=== PATIENT | male | born 1995 | race Two or more races ===

== ENCOUNTER 2023-03-04 01:05 | Emergency (ER) | payer OTHER ==
[~2023-03-04] VITALS: Ht 188 cm; Wt 86.2 kg
[2023-03-04 01:08] VITALS: TEMP 98.5
[2023-03-04] MEDS ORDERED: KETOROLAC TROMETHAMINE INJ 30 MG/ML VIAL ONE (01:13)
[2023-03-04] MEDS ORDERED: TDAP [DIPH/PERTUSSIS/TET] 0.5 ML VIAL IM ONE ×2 (01:13→01:30)
[2023-03-04] MEDS ORDERED: KETOROLAC TROMETHAMINE INJ 30 MG/ML VIAL IV ONE (01:30)
[2023-03-04] MEDS ORDERED: LIDOCAINE 1%-EPI 1:100,000 20 ML VIAL ONE (01:55)
[2023-03-04] MEDS ORDERED: LIDOCAINE HCL/PF 1% 30 ML VIAL IM ONE (02:00)
[2023-03-04 02:05] LABS: BASOPHILS % (AUTO) 0.3 % (0.0-2.0); EOSINOPHILS % (AUTO) 0.4 % (0.0-6.0); HEMATOCRIT 40 % (39-51); HEMOGLOBIN 13.4 g/dL (13.5-17.5); LYMPHOCYTES # (AUTO) 5.1 K/uL (0.8-4.8); LYMPHOCYTES % (AUTO) 44.6 % (20.0-44.0); MEAN CORPUSCULAR HEMOGLOBIN 30 PG (26.0-33.0); MEAN CORPUSCULAR HGB CONC 34 g/dl (31.0-36.0); MEAN CORPUSCULAR VOLUME 88 fL (80-96); MONOCYTES # (AUTO) 0.7 K/uL (0.1-1.30); MONOCYTES % (AUTO) 6.4 % (2.0-12.0); NEUTROPHILS # (AUTO) 5.6 K/uL (1.8-8.9); NEUTROPHILS % (AUTO) 48.3 % (43.0-81.0); PLATELET COUNT (AUTO) 229 K/uL (150-450); RED CELL DISTRIBUTION WIDTH 12.4 % (11.5-15.0); WHITE BLOOD COUNT (AUTO) 11.5 K/uL (4.3-11.0)
[2023-03-04 02:15] LABS: INR 1.03 (0.91-1.10); PROTHROMBIN TIME 10.9 SECS (9.2-11.1)
[2023-03-04] MEDS ORDERED: IOHEXOL-300 100 ML VIAL IV ONE (02:19)
[2023-03-04] MEDS ORDERED: CT SWABBABLE VALVE TRANS SET 1 EA INFUS.SET MC ONE (02:19)
[2023-03-04] MEDS ORDERED: IV NS 0.9% 250 ML IV ONE (02:19)
[2023-03-04 02:22] LABS: CARBON DIOXIDE 25 mmol/L (21-32); CHLORIDE 104 mmol/L (98-107); CREATININE 1.3 mg/dL (0.6-1.3); GLUCOSE 109 mg/dL (74-106); POTASSIUM 3.5 mmol/L (3.5-5.1); SODIUM SERUM 140 mmol/L (136-145); UREA NITROGEN, BLOOD 20 mg/dL (7-18)
[2023-03-04 02:29] LABS: ALANINE AMINOTRANSFERASE 31 U/L (12-78); ALBUMIN 4.2 g/dL (3.4-5.0); ALCOHOL, BLOOD < 3 mg/dL (0-10); ALKALINE PHOSPHATASE 69 U/L (46-116); ASPARTATE AMINOTRANSFERASE 39 U/L (15-37); BILIRUBIN,TOTAL 0.3 mg/dL (0.2-1.0); TOTAL PROTEIN, SERUM 7.9 g/dL (6.4-8.2)
[2023-03-04] MEDS ORDERED: CEPH500C2 PO (04:42)
[2023-03-04 05:25] VITALS: BP 127/72; O2SAT 98
== END 2023-03-04 05:26 ==
LOC: ER 01:07
DX: S41.011A Laceration without foreign body of right shoulder, initial encounter (principal); S21.211A Laceration without foreign body of right back wall of thorax without penetration into thoracic cavity, initial encounter; Z79.899 Other long term (current) drug therapy; W45.8XXA Other foreign body or object entering through skin, initial encounter; Y93.89 Activity, other specified; Y92.89 Other specified places as the place of occurrence of the external cause; Y99.8 Other external cause status
CPT/HCPCS: 12002; 36415; 71045; 71260; 73060; 74177; 80053; 80320; 85025; 85610; 90471; 90715; 96374; 99285; J1885; J3490; J7050; Q9967; G0480

== ENCOUNTER 2023-03-07 13:04 | Emergency (ER) | payer OTHER ==
[~2023-03-07] VITALS: Ht 188 cm; Wt 86.2 kg
[~2023-03-07 13:04] MED LIST: CEPH500C2 PO
[2023-03-07 13:15] VITALS: BP 118/77; TEMP 98.2
[2023-03-07] MEDS ORDERED: KETO10TA2 PO (13:17)
[2023-03-07] MEDS ORDERED: HYDR-4209 PO (13:17)
[2023-03-07 13:22] VITALS: O2SAT 98
[2023-03-07] MEDS ORDERED: HYDR-3976 PO (14:54)
== END 2023-03-07 13:23 | disposition home or self-care (01) ==
LOC: ER 13:04
DX: S41.011D Laceration without foreign body of right shoulder, subsequent encounter (principal); S21.211D Laceration without foreign body of right back wall of thorax without penetration into thoracic cavity, subsequent encounter; X58.XXXD Exposure to other specified factors, subsequent encounter

== ENCOUNTER 2023-03-11 21:20 | Emergency (ER) | payer OTHER ==
[~2023-03-11] VITALS: Ht 182.9 cm; Wt 77.1 kg
[~2023-03-11 21:20] MED LIST changes: +HYDR-3976 PO; +HYDR-4209 PO; +KETO10TA2 PO
[2023-03-11] MEDS ORDERED: ONDA4TAB11 PO (22:52)
[2023-03-11] MEDS ORDERED: KETO10TA2 PO (22:52)
[2023-03-12 04:41] VITALS: BP 125/84; TEMP 98.2; O2SAT 99
== END 2023-03-12 00:10 | disposition home or self-care (01) ==
LOC: ER 21:24
DX: S41.011D Laceration without foreign body of right shoulder, subsequent encounter (principal); Z48.02 Encounter for removal of sutures; X58.XXXD Exposure to other specified factors, subsequent encounter

== ENCOUNTER 2023-10-21 13:09 | Emergency (ER) | payer SELFPAY ==
[~2023-10-21] VITALS: Ht 188 cm; Wt 89.8 kg
[~2023-10-21 13:09] MED LIST changes: -HYDR-4209 PO; +ONDA4TAB11 PO
[2023-10-21 13:22] VITALS: BP 140/80; TEMP 98; O2SAT 97
[2023-10-21] MEDS ORDERED: dexaMETHasone SOD PHOSPHATE 1 ML ONE (13:33)
[2023-10-21] MEDS: dexaMETHasone SOD PHOSPHATE 10 MG/ML VIAL MC ONE (13:34)
[2023-10-21] MEDS ORDERED: IBUP-1955 PO (14:53)
[2023-10-21] MEDS ORDERED: PENI500T PO (14:53)
[2023-10-21] MEDS ORDERED: ACET-2605 PO (14:53)
== END 2023-10-21 15:03 | disposition home or self-care (01) ==
LOC: ER 13:12
DX: J02.0 Streptococcal pharyngitis (principal); Z20.822 Contact with and (suspected) exposure to COVID-19
CPT/HCPCS: 99283; 87426; 87880; J1100; 86403-TC

== ENCOUNTER 2023-11-22 14:50 | Emergency (ER) | payer OTHER ==
[~2023-11-22] VITALS: Ht 188 cm; Wt 88.5 kg
[~2023-11-22 14:50] MED LIST changes: +ACET-2605 PO; +IBUP-1955 PO; +PENI500T PO
[2023-11-22 15:01] VITALS: BP 141/87; TEMP 98
[2023-11-22] MEDS: FLUORESCEIN SODIUM OPHTH 1 EA STRIP OP ONE (15:18)
[2023-11-22] MEDS ORDERED: TETRAcaine 5 ML BOTTLE ONE (15:18)
[2023-11-22] MEDS ORDERED: POLY10DR OP (15:57)
[2023-11-22 16:09] VITALS: O2SAT 98
== END 2023-11-22 16:10 | disposition home or self-care (01) ==
LOC: ER 14:50
DX: H57.12 Ocular pain, left eye (principal); Z79.899 Other long term (current) drug therapy; Z60.2 Problems related to living alone

== ENCOUNTER 2024-01-08 09:29 | Emergency (ER) | payer OTHER ==
[~2024-01-08] VITALS: Ht 188 cm; Wt 89.8 kg
[~2024-01-08 09:29] MED LIST changes: +POLY10DR OP
[2024-01-08 09:49] VITALS: BP 136/85; TEMP 97.7
[2024-01-08] MEDS ORDERED: BENZ-13 PO (10:10)
[2024-01-08] MEDS ORDERED: GUAI-946 PO (10:10)
[2024-01-08] MEDS ORDERED: BENZONATATE 100 MG CAPSULE PO ONE (10:16)
[2024-01-08] MEDS: BENZONATATE 100 MG CAPSULE PO PRN (10:18)
[2024-01-08 10:22] VITALS: O2SAT 98
== END 2024-01-08 10:23 | disposition home or self-care (01) ==
LOC: ER 09:43
DX: J02.9 Acute pharyngitis, unspecified (principal); B97.89 Other viral agents as the cause of diseases classified elsewhere; F17.200 Nicotine dependence, unspecified, uncomplicated; Z60.2 Problems related to living alone

== ENCOUNTER 2024-01-12 00:42 | Emergency (ER) | payer OTHER ==
[~2024-01-12] VITALS: Ht 188 cm; Wt 86.2 kg
[~2024-01-12 00:42] MED LIST changes: +BENZ-13 PO; +GUAI-946 PO
[2024-01-12] MEDS ORDERED: CODEINE/PROMETHAZINE HCL 5 ML UDC ONE (01:41)
[2024-01-12] MEDS ORDERED: AZITHROMYCIN 250 MG TABLET ONE (01:42)
[2024-01-12] MEDS: CODEINE/PROMETHAZINE HCL 5 ML UDC PO ONE (01:47)
[2024-01-12] MEDS: AZITHROMYCIN 250 MG TABLET PO ONE (01:47)
[2024-01-12] MEDS ORDERED: AZIT250T PO (02:17)
[2024-01-12 02:22] VITALS: BP 170/89; TEMP 98; O2SAT 100
== END 2024-01-12 02:22 | disposition home or self-care (01) ==
LOC: ER 00:43
DX: J40 Bronchitis, not specified as acute or chronic (principal); F17.200 Nicotine dependence, unspecified, uncomplicated; Z60.2 Problems related to living alone
CPT/HCPCS: 71045-TC

== ENCOUNTER 2024-03-17 21:07 | Emergency (ER) | payer OTHER ==
[~2024-03-17] VITALS: Ht 185.4 cm; Wt 89.8 kg
[~2024-03-17 21:07] MED LIST changes: +AZIT250T PO
[2024-03-17] MEDS: ACETAMINOPHEN ES 500 MG TABLET PO ONE (22:00)
[2024-03-17] MEDS: IV NS 0.9% 1,000 ML BAG IV ONE (22:00)
[2024-03-17] MEDS ORDERED: ACETAMINOPHEN ES 500 MG TABLET ONE (22:00)
[2024-03-17 22:20] LABS: BASOPHILS % (AUTO) 0.3 % (0.0-2.0); EOSINOPHILS % (AUTO) 0.1 % (0.0-6.0); HEMATOCRIT 42 % (39-51); HEMOGLOBIN 14.2 g/dL (13.5-17.5); LYMPHOCYTES # (AUTO) 0.7 K/uL (0.8-4.8); LYMPHOCYTES % (AUTO) 14.1 % (20.0-44.0); MEAN CORPUSCULAR HEMOGLOBIN 30 PG (26.0-33.0); MEAN CORPUSCULAR HGB CONC 34 g/dl (31.0-36.0); MEAN CORPUSCULAR VOLUME 87 fL (80-96); MONOCYTES # (AUTO) 0.7 K/uL (0.1-1.30); MONOCYTES % (AUTO) 13.4 % (2.0-12.0); NEUTROPHILS # (AUTO) 3.7 K/uL (1.8-8.9); NEUTROPHILS % (AUTO) 72.1 % (43.0-81.0); PLATELET COUNT (AUTO) 170 K/uL (150-450); RED BLOOD CELL COUNT(AUTO) 4.76 MIL/uL (4.5-6.0); RED CELL DISTRIBUTION WIDTH 13.3 % (11.5-15.0); WHITE BLOOD COUNT (AUTO) 5.2 K/uL (4.3-11.0)
[2024-03-17 22:33] LABS: CALCIUM, SERUM 8.7 mg/dL (8.5-10.1); POTASSIUM 3.5 mmol/L (3.5-5.1)
[2024-03-17] MEDS ORDERED: OSEL75CA PO (22:56)
[2024-03-17 23:13] LABS: APPEARANCE,URINE CLEAR (CLEAR); BILIRUBIN,URINE NEGATIVE (NEGATIVE); BLOOD, URINE NEGATIVE Ery/uL (NEGATIVE); COLOR,URINE YELLOW (YELLOW); KETONES,URINE TRACE mg/dL (NEGATIVE); LEUKOCYTE ESTERASE ,URINE NEGATIVE (NEGATIVE); NITRITE, URINE NEGATIVE (NEGATIVE); PROTEIN,URINE 1+ mg/dl (NEGATIVE); UGLUCOSE NEGATIVE (NEGATIVE)
[2024-03-17] MEDS ORDERED: OSELTAMIVIR PHOSPHATE 75 MG CAPSULE ONE (23:19)
[2024-03-17] MEDS: OSELTAMIVIR PHOSPHATE 75 MG CAPSULE PO ONE (23:24)
[2024-03-17 23:25] LABS: ADD URINE CULTURE NO; BACTERIA,URINE Rare /HPF (None Seen); MUCUS,URINE Many /LPF (None Seen); RBC,URINE 0-2 /HPF (0-2); SQUAMOUS EPITHELIAL CELL,UR Rare /HPF (None Seen); WBC,URINE 0-2 /HPF (0-3)
[2024-03-17 23:36] VITALS: BP 143/87; TEMP 216; O2SAT 95
== END 2024-03-17 23:38 | disposition home or self-care (01) ==
LOC: ER 21:13
DX: J10.1 Influenza due to other identified influenza virus with other respiratory manifestations (principal); F17.200 Nicotine dependence, unspecified, uncomplicated; R50.9 Fever, unspecified; R05.9 Cough, unspecified; R09.81 Nasal congestion; Z20.822 Contact with and (suspected) exposure to COVID-19; Z60.2 Problems related to living alone
CPT/HCPCS: 99284; 96360; 71045; 87426; 87804 ×2; 85025; 80048; 81001; 36415; J7030

== ENCOUNTER 2024-03-19 23:52 | Emergency (ER) | payer OTHER ==
[~2024-03-19] VITALS: Ht 188 cm; Wt 87.1 kg
[~2024-03-19 23:52] MED LIST changes: +OSEL75CA PO
[2024-03-20] MEDS ORDERED: AMOX500C2 PO (03:42)
[2024-03-20 05:56] VITALS: BP 125/80; TEMP 98; O2SAT 100
== END 2024-03-20 05:57 ==
LOC: ER 03-20 00:02
DX: J40 Bronchitis, not specified as acute or chronic (principal); F17.200 Nicotine dependence, unspecified, uncomplicated; R09.89 Other specified symptoms and signs involving the circulatory and respiratory systems; Z65.3 Problems related to other legal circumstances; Z60.2 Problems related to living alone; Z20.822 Contact with and (suspected) exposure to COVID-19

== ENCOUNTER 2024-05-01 19:31 | Emergency (ER) | payer SELFPAY ==
[~2024-05-01 19:31] MED LIST changes: +AMOX500C2 PO
== END 2024-05-01 22:56 | disposition left against medical advice (07) ==
LOC: ER 19:33
DX: J02.9 Acute pharyngitis, unspecified (principal); Z53.21 Procedure and treatment not carried out due to patient leaving prior to being seen by health care provider

== ENCOUNTER 2024-05-02 21:53 | Emergency (ER) | payer SELFPAY ==
[~2024-05-02] VITALS: Ht 188 cm; Wt 89.8 kg
[2024-05-03 00:57] VITALS: BP 152/90; TEMP 99.8
[2024-05-03] MEDS ORDERED: PRED50TA PO (01:09)
[2024-05-03] MEDS ORDERED: CLIN300C12 PO (01:09)
[2024-05-03] MEDS ORDERED: HYDR-3976 PO (01:09)
[2024-05-03] MEDS ORDERED: predniSONE 20 MG TABLET ONE (01:12)
[2024-05-03] MEDS ORDERED: PENICILLIN G BENZATHINE 2.4 MMU/4 ML ML IM ONE ×2 (01:12→01:30)
[2024-05-03 01:29] VITALS: O2SAT 96
[2024-05-03] MEDS ORDERED: predniSONE 50 MG TABLET PO ONE (01:30)
== END 2024-05-03 01:29 | disposition home or self-care (01) ==
LOC: ER 21:56
DX: J03.90 Acute tonsillitis, unspecified (principal); F17.200 Nicotine dependence, unspecified, uncomplicated; Z60.2 Problems related to living alone
CPT/HCPCS: 99283; J0558; J7512

== ENCOUNTER 2024-08-10 14:03 | Emergency (ER) | payer OTHER ==
[~2024-08-10] VITALS: Ht 185.4 cm; Wt 86.2 kg
[~2024-08-10 14:03] MED LIST changes: +CLIN300C12 PO; +PRED50TA PO
[2024-08-10 14:09] VITALS: BP 140/73; TEMP 97.5
[2024-08-10] MEDS ORDERED: BENZ-13 PO (14:25)
[2024-08-10] MEDS ORDERED: FLUT9.9S NS (14:25)
[2024-08-10] MEDS ORDERED: GUAI-671 PO (14:49)
[2024-08-10 15:04] VITALS: O2SAT 99
[2024-08-11] MEDS ORDERED: PROM118S5 PO (15:25)
[2024-08-11] MEDS ORDERED: AMOX500C2 PO (15:25)
== END 2024-08-10 15:04 | disposition home or self-care (01) ==
LOC: ER 14:15
DX: R09.81 Nasal congestion (principal); R05.9 Cough, unspecified; R51.9 Headache, unspecified; F12.90 Cannabis use, unspecified, uncomplicated; F17.200 Nicotine dependence, unspecified, uncomplicated; Z60.2 Problems related to living alone; Z79.899 Other long term (current) drug therapy; Z79.52 Long term (current) use of systemic steroids

== ENCOUNTER 2024-08-11 14:13 | Emergency (ER) | payer OTHER ==
[~2024-08-11] VITALS: Ht 185.4 cm; Wt 88.5 kg
[~2024-08-11 14:13] MED LIST changes: +FLUT9.9S NS; +GUAI-671 PO
[2024-08-11 14:35] VITALS: BP 155/66; TEMP 98.5; O2SAT 97
[2024-08-11] MEDS ORDERED: AMOX500C2 PO (15:25)
[2024-08-11] MEDS ORDERED: PROM118S5 PO (15:25)
== END 2024-08-11 15:47 | disposition home or self-care (01) ==
LOC: ER 14:42
DX: J06.9 Acute upper respiratory infection, unspecified (principal); B97.89 Other viral agents as the cause of diseases classified elsewhere; R07.9 Chest pain, unspecified; F12.90 Cannabis use, unspecified, uncomplicated; F17.200 Nicotine dependence, unspecified, uncomplicated; Z79.52 Long term (current) use of systemic steroids; Z60.2 Problems related to living alone
CPT/HCPCS: 71045-TC